=== PATIENT | male | born 1975 | race African-American/Black ===

== ENCOUNTER 2016-12-06 16:15 | Emergency (ER) | payer OTHER ==
--- NOTE | ~2016-12-06 | CT114 ---
[facility] A Service of [facility] RADIOLOGY TEXT RESULTS PATIENT: AMBROCIO CURIEL LOCATION: [place] : 71 UNIT #: [id number] AGE: [address]: Silvia Ordoñez SEX: M ORDER DR: [id number] [facility] [address] [place], [place] [address] [id number] E MR#: [id number] Acc #: [id number] NAME: AMBROCIO CURIEL. : 1975 SEX: M STUDY DATE/TIME: 12/06/2016 17:17 UNIT: [facility] ROOM: STUDY DESCRIPTION: CT Soft Tissue Neck W Cont Attending Physician: Silvia Ordoñez P.A.-C. Ordering Physician: Silvia Ordoñez P.A.-C. Primary Care Physician: No Primary Care Physician MEDICAL IMAGING REPORT This report is preliminary unless electronic signature is present EXAM CT neck with contrast. DATE OF EXAM 12/06/2016 HISTORY 41-year-old male complains of right neck pain x4 days. Current smoker, swelling, right-sided, sore throat. TECHNIQUE NOTE: This CT exam was performed with one or more of the following radiation dose reduction techniques: automatic exposure control, adjustment of mA and/or kV according to patient size, and iterative reconstruction. FINDINGS Axial images performed through the neck from the skull base to the lurdes following IV contrast. Multiplanar reconstructed images reviewed at a workstation. The parotid, submandibular and thyroid glands unremarkable. No significant lymphadenopathy. Head and neck vasculature appears normal. 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 There is some fracturing through the proximal aspect of the right stylohyoid ligament approximately 2.5 cm from its origin at the skull base. These extensive ossifications can be a source of clinical symptoms, possibly related to either cranial nerve impingement or possible compression of the carotid artery. Symptoms range from facial pain to dysphasia. This is often referred to as Kaw syndrome. Correlate with clinical presentation. The fracturing in the proximal portion could also represent a contributing factor to the patient's STS. [facility] A Service of [facility] RADIOLOGY TEXT RESULTS PATIENT: AMBROCIO CURIEL LOCATION: [facility] : 71 UNIT #: [id number] AGE: [address]: Silvia Ordoñez SEX: M ORDER DR: symptoms, though this appears to represent a chronic or at least subacute fracture. Patient demonstrates poor dentition, but no evidence of periodontal abscess. 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 There is fracturing of the proximal portion of the right stylohyoid ligament ossification about 2 cm from its origin at the skull base. This extensive ossification and elongation of the process can be symptomatic due to either cranial nerve compression or due to vascular compression. Correlate with patient's clinical presentation. 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 No other definite head/neck pathology is identified. Clearly no evidence of abscess or other significant mass lesion. Again, further ENT evaluation may be warranted. NOTE Please note this could all be just an incidental finding, but based on the extensive ossification, further evaluation may be warranted. These findings were called and discussed with Silvia Ordoñez in the emergency room following this dictation. Dictated by... Colt Lucas M.D. THIS IS AN ELECTRONICALLY VERIFIED REPORT Colt Lucas M.D. at 12/06/2016 10:39 PM Molly TD: 12/06/2016 21:15 JOB #: [id number] MEDICAL IMAGING REPORT Page 1 of 1 COPY
[~2016-12-06 16:15] MED LIST: METFORMIN HCL1000 M1 PO; PRINIVIL10 MG PO
[2016-12-06 16:44] LABS: BASOPHIL# 0.1 X10e3 (0-0.3); BASOPHIL% 0.7 % (0-2.5); EOSINOPHIL# 0.3 X10e3 (0-0.7); EOSINOPHIL% 2.4 % (0.0-7.0); HEMATOCRIT 41.3 % (38.0-50.0); HEMOGLOBIN 13.8 gm/dL (13.0-16.0); LYMPHOCYTE# 2.7 X10e3 (1.0-3.5); LYMPHOCYTE% 21.5 % (17.0-45.0); MEAN CELL VOLUME 85.4 FL (83-96); MEAN CORPUSCULAR HEMOGLOBIN 28.5 PG (28-34); MEAN CORPUSCULAR HGB CONC 33.4 g/dL (30-36); MEAN PLATELET VOLUME 9.1 FL (6.5-11.5); MONOCYTE# 0.6 X10e3 (0-1.0); MONOCYTE% 5.1 % (3.0-12.0); NEUTROPHIL# 8.7 X10e3 (1.5-7.1); NEUTROPHIL% 70.3 % (40-75); PLATELET COUNT 225 X10e3 (140-420); RED BLOOD COUNT 4.84 X10e (3.90-5.60); RED CELL DISTRIBUTION WIDTH 14.1 % (11.0-15.5); WHITE BLOOD COUNT 12.3 X10e3 (4.0-10.5)
[2016-12-06 16:48] LABS: DIFF IND NO
[2016-12-06 17:02] LABS: INFLUENZA A NEG (NEG); INFLUENZA B NEG (NEG)
[2016-12-06 17:12] LABS: BUN/CREATININE RATIO 16.36; CALCIUM SERUM 9.2 mg/dL (8.4-10.2); CREATININE SERUM 1.1 mg/dL (0.6-1.4); GLOM FILT RATE Estimated 94.8 mL/min (>60); POTASSIUM 3.2 mmol/L (3.5-5.1)
== END 2016-12-06 18:46 | disposition home or self-care (01) ==
LOC: CFTX 16:15
PROVIDERS: Physician Assistant
DX: Q79.4 Prune belly syndrome (principal); E11.9 Type 2 diabetes mellitus without complications; I10 Essential (primary) hypertension; Z79.84 Long term (current) use of oral hypoglycemic drugs; Z79.899 Other long term (current) drug therapy
CPT/HCPCS: 36415; 70491; 80048; 82947; 85025; 87651; 87804; 96361; 96374; 99284; J1885; Q9967